=== PATIENT | female | born 1990 | race Caucasian/White ===

== ENCOUNTER 2017-01-27 12:08 | Emergency (ER) | payer MEDICAID, OTHER ==
[2017-01-27] MEDS ORDERED: KETAMINE 100 MG/10 ML SYR IVP ONE (13:33)
[2017-01-27] MEDS ORDERED: LIDOCAINE 5% 1 EA PATCH TD ONE (13:33)
[2017-01-27] MEDS ORDERED: KETOROLAC 15 MG/1 ML SDV IVP ONE (13:33)
--- NOTE | 2017-01-27 13:54 | EDPHY ---
H & P Stated Complaint: In [facility] ED on Friday for R rib injuries Time Seen by Provider: 01/27/17 13:01 HPI/ROS: CHIEF COMPLAINT: Requesting pain medications HISTORY OF PRESENT ILLNESS: The patient presents to the ED requesting pain medications. She reports she was hospitalized at [facility] over the weekend following a mechanical fall. She was diagnosed with a small liver laceration and rib fractures. She reports that she left the hospital against medical advice because they would not manage her pain with medication other than Percocet. The patient presents to the emergency department requesting assistance with pain management. REVIEW OF SYSTEMS: A comprehensive 10 point review of systems is otherwise negative aside from elements mentioned in the history of present illness. Source: Patient Exam Limitations: No limitations - Personal History LMP (Females 10-55): Now Current Tetanus Diphtheria and Acellular Pertussis (TDAP): Yes - Medical/Surgical History Hx Asthma: No Hx Chronic Respiratory Disease: No Hx Diabetes: No Hx Cardiac Disease: No Hx Renal Disease: No Hx Cirrhosis: No Hx Alcoholism: No Hx HIV/AIDS: No Hx Splenectomy or Spleen Trauma: No Other PMH: Thyroid CA. - Social History Smoking Status: Current every day smoker - Physical Exam Exam: General Appearance: Alert, no distress Head: Atraumatic Eyes: Pupils equal, round, reactive ENT, Mouth: No hemotympanum, no oral trauma Neck: Nontender, trachea midline Respiratory: Tenderness to palpation right ribs, no subcutaneous emphysema, mild soft tissue swelling, slight ecchymosis Cardiovascular: Regular rate and rhythm Abdomen: Mild right upper quadrant tenderness Skin: No lacerations, No abrasion Back: No midline T/L/S pain Extremities: Nontender, full range of motion Neurological: A&Ox3, normal motor function, normal sensory exam Constitutional: Initial Vital Signs Temperature (C) 36.6 C 01/27/17 12:10 Heart Rate 82 01/27/17 12:10 Respiratory Rate 18 01/27/17 12:10 Blood Pressure 121/88 H 01/27/17 12:10 O2 Sat (%) 100 01/27/17 12:10 O2 Delivery Mode Room Air Allergies/Adverse Reactions: No Known Allergies Allergy (Unverified 01/27/17 12:14) Home Medications: Medication Instructions Recorded Diclofenac Sodium [Voltaren 75 MG 75 mg PO BID PRN #30 tab 01/27/17 (*)] Lidocaine 5% [Lidoderm 5% Patch 1 ea TD DAILY #12 patch 01/27/17 (*)] Synthroid 01/27/17 Medical Decision Making - Diagnostics Imaging Results: Imaging Impressions Chest X-Ray 01/27/17 13:33 Impression: No acute pulmonary disease. ED Course/Re-evaluation: The patient presents to the ED requesting pain management for reported rib injuries. She was recently hospitalized and discharged home. The patient is hemodynamically stable without evidence of acute anemia. She does have tenderness on exam but no obvious rib fracture, pneumothorax or hemothorax on x- ray. The patient did receive a lidocaine patch. She also received small IV injection of ketamine. The patient will be discharged home with a prescription for diclofenac and lidocaine patches. The patient is advised to follow up with her primary care provider for any ongoing symptoms. She should return to the ED for any markedly worsening symptoms, difficulty breathing or other concerns. The patient was reexamined by myself at 2:40 p.m.. She feels much better after receiving a small dose of ketamine and lidocaine. She is comfortable being discharged home. She does have an incentive spirometer to use at home. She has been given customary aftercare instructions and return precautions. Differential Diagnosis: Differential diagnosis considered includes rib fracture, pneumothorax, hemothorax, critical anemia - Data Points Laboratory Results: Laboratory Results 01/27/17 13:47 01/27/17 13:47 01/27/17 01/27/17 13:47 13:47 WBC 8.31 10^3/uL 10^3/uL (3.80-9.50) RBC 4.80 10^6/uL 10^6/uL (4.18-5.33) Hgb 16.6 g/dL H g/dL (12.6-16.3) Hct 47.2 % H % (38.0-47.0) MCV 98.3 fL fL (81.5-99.8) MCH 34.6 pg H pg (27.9-34.1) MCHC 35.2 g/dL g/dL (32.4-36.7) RDW 12.8 % % (11.5-15.2) Plt Count 219 10^3/uL 10^3/uL (150-400) MPV 9.9 fL fL (8.7-11.7) Neut % (Auto) 67.0 % % (39.3-74.2) Lymph % (Auto) 26.5 % % (15.0-45.0) [place] % (Auto) 5.1 % % (4.5-13.0) Eos % (Auto) 0.6 % % (0.6-7.6) Baso % (Auto) 0.6 % % (0.3-1.7) Nucleat RBC Rel Count 0.0 % % (0.0-0.2) Absolute Neuts (auto) 5.57 10^3/uL 10^3/uL (1.70-6.50) Absolute Lymphs (auto) 2.20 10^3/uL 10^3/uL (1.00-3.00) Absolute Monos (auto) 0.42 10^3/uL 10^3/uL (0.30-0.80) Absolute Eos (auto) 0.05 10^3/uL 10^3/uL (0.03-0.40) Absolute Basos (auto) 0.05 10^3/uL 10^3/uL (0.02-0.10) Absolute Nucleated RBC 0.00 10^3/uL 10^3/uL (0-0.01) Immature Gran % 0.2 % % (0.0-1.1) Immature Gran # 0.02 10^3/uL 10^3/uL (0.00-0.10) Sodium 140 mEq/L mEq/L (134-144) Potassium 3.8 mEq/L mEq/L (3.5-5.2) Chloride 103 mEq/L mEq/L (97-110) Carbon Dioxide 25 mEq/l mEq/l (22-31) Anion Gap 12 mEq/L mEq/L (8-16) BUN 7 mg/dL mg/dL (7-23) Creatinine 0.7 mg/dL mg/dL (0.6-1.0) Estimated GFR > 60 Glucose 90 mg/dL mg/dL (70-100) Calcium 9.7 mg/dL mg/dL (8.5-10.4) Medications Given: Discontinued Medications Ketamine HCl (Ketamine) 11.2 mg 0.2 mg/kg (11.2 mg) IVP EDNOW ONE Stop: 01/27/17 13:34 Last Admin: 01/27/17 14:11 Dose: 11.2 mg Ketorolac Tromethamine (Toradol) 15 mg IVP EDNOW ONE Stop: 01/27/17 13:34 Last Admin: 01/27/17 13:53 Dose: 15 mg Lidocaine (Lidoderm 5%) 1 ea TD EDNOW ONE Stop: 01/27/17 13:34 Last Admin: 01/27/17 13:53 Dose: 1 ea Departure - Departure Disposition: Home, Routine, Self-Care Clinical Impression: Rib injury Condition: Good Instructions: Rib Fracture (ED) Additional Instructions: 1. Use diclofenac as prescribed for pain. Lidocaine patches as prescribed for pain. 2. Please follow-up with your primary care provider for any ongoing pain management needs. 3. Please return to the ED for markedly worsening pain, difficulty breathing or other concerns. Prescriptions: Diclofenac Sodium [Voltaren 75 MG (*)] 75 mg PO BID PRN #30 tab PRN Reason: for pain Lidocaine 5% [Lidoderm 5% Patch (*)] 1 ea TD DAILY #12 patch
[2017-01-27 14:06] LABS: ANION GAP 12 mEq/L (8-16); CALCIUM 9.7 mg/dL (8.5-10.4); CARBON DIOXIDE 25 mEq/l (22-31); CHLORIDE 103 mEq/L (97-110); CREATININE 0.7 mg/dL (0.6-1.0); GLOMERULAR FILTRATION RATE > 60; GLUCOSE 90 mg/dL (70-100); POTASSIUM 3.8 mEq/L (3.5-5.2); SODIUM 140 mEq/L (134-144)
[2017-01-27 14:12] LABS: % IMMATURE GRANULYOCYTES 0.2 % (0.0-1.1); ABSOLUTE IMMATURE GRANULOCYTES 0.02 10^3/uL (0.00-0.10); ADD DIFF? NO; ADD MORPH? NO; ADD SCAN? NO; ATYPICAL LYMPHOCYTE FLAG 10 (0-99); FRAGMENT RBC FLAG 0 (0-99); HEMATOCRIT 47.2 % (38.0-47.0); HEMOGLOBIN 16.6 g/dL (12.6-16.3); LEFT SHIFT FLG 0 (0-99); LIPEMIA HEMOLYSIS FLAG 90 (0-99); MEAN CELL HEMOGLOBIN 34.6 pg (27.9-34.1); MEAN CELL HEMOGLOBIN CONCENTR. 35.2 g/dL (32.4-36.7); MEAN CELL VOLUME 98.3 fL (81.5-99.8); MEAN PLATELET VOLUME 9.9 fL (8.7-11.7); PLATELET CLUMPS FLAG 10 (0-99); PLATELET COUNT 219 10^3/uL (150-400); RED CELL DISTRIBUTION WIDTH 12.8 % (11.5-15.2)
[2017-01-27 15:31] VITALS: BP 122/65; PULSE 56; RESP 14; TEMP 97.7; O2SAT 97
--- NOTE | 2017-01-27 15:31 | ASMTCMCOM ---
CM Note CM Note Notes: Pt requires follow up care for pain management Pt. reported [employer]. This SW called [facility] spoke with Starla . Starla informed that pt is not [employer] she is Medicaid and only same day appointments are allowed. Pt situation was discussed and Starla stated that she would have Dr. Diego's office call the pt within 4 hours to schedule a follow up call. Pt. confirmed her contact information and indicated that plan was acceptable. Pt to call ED CM if she needs additional assistance scheduling a follow up appointment. Date Signed: 01/27/2017 03:30 PM Electronically Signed By:Omid Duong LCSW
[2017-01-27] MEDS ORDERED: PATCH REMOVAL 1 EA PATCH TD SCH (21:00)
== END 2017-01-27 15:33 | disposition home or self-care (01) ==
DX: S29.9XXA Unspecified injury of thorax, initial encounter (principal); F17.200 Nicotine dependence, unspecified, uncomplicated; Z85.850 Personal history of malignant neoplasm of thyroid; W18.39XA Other fall on same level, initial encounter
CPT/HCPCS: 96374; J1885